=== PATIENT | male | born 2000 | race Caucasian/White ===

== ENCOUNTER 2019-09-30 23:04 | Emergency (ER) | payer MEDICAID ==
[~2019-09-30] VITALS: Ht 188 cm; Wt 72.7 kg
[~2019-09-30 23:04] MED LIST: IBUP-1984 PO
--- NOTE | 2019-09-30 23:20 | NUR ---
Dr. Owens at bedside applying dermabond to pt's finger lac.
--- NOTE | 2019-09-30 23:24 | NUR ---
Dermabond ineffective. Order received to prep for suture.
--- NOTE | 2019-09-30 23:35 | NUR ---
Dr. Owens at bedside performing lac repair.
[2019-09-30 23:49] VITALS: BP 120/74
== END 2019-09-30 23:50 | disposition home or self-care (01) ==
LOC: ER 23:05
DX: S61.215A Laceration without foreign body of left ring finger without damage to nail, initial encounter (principal); W26.0XXA Contact with knife, initial encounter; Y93.89 Activity, other specified; Y92.89 Other specified places as the place of occurrence of the external cause; Y99.9 Unspecified external cause status
CPT/HCPCS: 12001; 99282

== ENCOUNTER 2021-11-03 08:37 | Emergency (ER) | payer MEDICAID ==
[~2021-11-03] VITALS: Ht 190.5 cm; Wt 68.2 kg
[2021-11-03 09:15] VITALS: BP 110/68
[2021-11-03] MEDS ORDERED: IBUP-1984 PO (10:26)
[2021-11-03] MEDS ORDERED: PENI250T2 PO (10:26)
== END 2021-11-03 10:48 | disposition home or self-care (01) ==
LOC: ER 08:38
DX: K08.89 Other specified disorders of teeth and supporting structures (principal); R22.0 Localized swelling, mass and lump, head; Z79.2 Long term (current) use of antibiotics; Z79.899 Other long term (current) drug therapy
CPT/HCPCS: 99283